=== PATIENT | female | born 1995 ===

== ENCOUNTER 2022-09-24 14:19 | Emergency (ER) | payer OTHER, SELFPAY ==
[2022-09-24] MEDS ORDERED: Boostrix 0.5 ML (Tdap) VIAL (>/=7 yrs of age) ONE (16:10)
[2022-09-24] MEDS ORDERED: Bacitracin 1 PK ONE (16:11)
== END 2022-09-24 16:31 | disposition home or self-care (01) ==
LOC: ERS 14:19
DX: S62.634B Displaced fracture of distal phalanx of right ring finger, initial encounter for open fracture (principal); Z23 Encounter for immunization; W54.0XXA Bitten by dog, initial encounter
CPT/HCPCS: 29130; 90471; 90715